=== PATIENT | female | born 1990 | race African-American/Black ===

== ENCOUNTER 2024-07-20 13:22 | Emergency (ER) | payer OTHER ==
[~2024-07-20] VITALS: Ht 165.1 cm; Wt 68.0 kg
[2024-07-20 13:38] VITALS: BP 125/84; PULSE 82; RESP 16; TEMP 98.2; O2SAT 100
== END 2024-07-20 16:12 | disposition home or self-care (01) ==
LOC: ER 13:43
DX: T59.811A Toxic effect of smoke, accidental (unintentional), initial encounter (principal); R51.9 Headache, unspecified; Y92.89 Other specified places as the place of occurrence of the external cause
CPT/HCPCS: 99281